=== PATIENT | male | born 1935 | race Caucasian/White ===

== ENCOUNTER → 2018-01-11 | Outpatient (CLI) | payer MEDICARE, BC ==
[~2018-01-11] MED LIST: CARV3.125 PO; CITA20TA4 PO; COUM7.5T PO; VALA1TAB PO
== END ==
LOC: HRSP 08:45
PROVIDERS: ATTEND Internal Medicine Interventional Cardiology
DX: R05 Cough (principal); R06.02 Shortness of breath
CPT/HCPCS: 94060; 94726; 94729